=== PATIENT | female | born 1995 | race American Indian/Alaskan Native ===

== ENCOUNTER 2020-01-12 08:10 | Inpatient (IN) | payer OTHER ==
[~2020-01-12] VITALS: Ht 160 cm; Wt 69.4 kg
[2020-01-12] MEDS ORDERED: PRENATAL TABLE1 EAC1 PO (08:18)
[2020-01-12] MEDS ORDERED: DHA100 MG (08:19)
== END 2020-01-15 10:31 | DRG 832 ==
LOC: OBS/DEL 08:10 → LDR 08:13 → OB/GYN 08:13 → OBS/DEL 08:13 → OB/GYN 22:00 → LDR 22:14 → OB/GYN 01-13 08:48
PROVIDERS: ADMIT Specialist; ATTEND Specialist
PROC: BY4CZZZ Ultrasonography of Second Trimester, Single Fetus (ICD-10-PCS; principal; 2020-01-12)
PROC: BT43ZZZ Ultrasonography of Bilateral Kidneys (ICD-10-PCS; 2020-01-12)
PROC: 4A0HXFZ Measurement of Products of Conception, Cardiac Rhythm, External Approach (ICD-10-PCS; 2020-01-12)
DX: O23.02 Infections of kidney in pregnancy, second trimester (principal); N13.30 Unspecified hydronephrosis; O99.891 Other specified diseases and conditions complicating pregnancy; Z3A.26 26 weeks gestation of pregnancy; Z20.828 Contact with and (suspected) exposure to other viral communicable diseases

== ENCOUNTER 2020-04-07 12:00 | Inpatient (IN) | payer OTHER ==
[~2020-04-07] VITALS: Ht 165.1 cm; Wt 76.7 kg
[~2020-04-07 12:00] MED LIST: DHA100 MG; PRENATAL TABLE1 EAC1 PO
== END 2020-04-18 11:15 | disposition home or self-care (01) | DRG 806 ==
LOC: LDR 04-16 06:05 → SURG-SUITE 04-16 14:52 → LDR 04-21 12:00
PROVIDERS: ADMIT Specialist; ATTEND Specialist
PROC: 10E0XZZ Delivery of Products of Conception, External Approach (ICD-10-PCS; principal; 2020-04-16)
PROC: 0W8NXZZ Division of Female Perineum, External Approach (ICD-10-PCS; 2020-04-16)
PROC: 3E033VJ Introduction of Other Hormone into Peripheral Vein, Percutaneous Approach (ICD-10-PCS; 2020-04-16)
PROC: 4A1HXFZ Monitoring of Products of Conception, Cardiac Rhythm, External Approach (ICD-10-PCS; 2020-04-16)
DX: O99.892 Other specified diseases and conditions complicating childbirth (principal); N13.30 Unspecified hydronephrosis; Z37.0 Single live birth; Z3A.39 39 weeks gestation of pregnancy; Z20.822 Contact with and (suspected) exposure to COVID-19

== ENCOUNTER 2021-08-21 11:17 | Emergency (ER) | payer OTHER ==
[~2021-08-21] VITALS: Ht 165.1 cm; Wt 67.1 kg
== END 2021-08-21 16:10 | disposition home or self-care (01) ==
LOC: ER 11:17
DX: O34.60 Maternal care for abnormality of vagina, unspecified trimester (principal); R10.2 Pelvic and perineal pain

== ENCOUNTER 2022-07-25 18:34 | Outpatient (CLI) | payer OTHER ==
[2022-07-25] MEDS ORDERED: PRENATAL TABLE1 EAC1 PO (18:59)
== END 2022-07-26 16:39 | disposition home or self-care (01) ==
LOC: OBS/DEL 18:34
PROVIDERS: ATTEND Specialist
DX: O09.42 Supervision of pregnancy with grand multiparity, second trimester (principal); N20.0 Calculus of kidney; Z3A.25 25 weeks gestation of pregnancy

== ENCOUNTER 2022-10-24 13:00 | Inpatient (IN) | payer OTHER ==
[~2022-10-24] VITALS: Ht 165.1 cm; Wt 79.4 kg
== END 2022-11-02 13:16 | disposition home or self-care (01) | DRG 807 ==
LOC: LDR 10-31 05:36 → OB/GYN 10-31 13:45 → LDR 11-06 13:00
PROVIDERS: ADMIT Specialist; ATTEND Specialist
PROC: 10E0XZZ Delivery of Products of Conception, External Approach (ICD-10-PCS; principal; 2022-10-31)
PROC: 0HQ9XZZ Repair Perineum Skin, External Approach (ICD-10-PCS; 2022-10-31)
PROC: 4A1HXCZ Monitoring of Products of Conception, Cardiac Rate, External Approach (ICD-10-PCS; 2022-10-31)
DX: O70.0 First degree perineal laceration during delivery (principal); Z37.0 Single live birth; Z3A.39 39 weeks gestation of pregnancy; Z20.822 Contact with and (suspected) exposure to COVID-19

== ENCOUNTER 2023-11-30 11:27 | Outpatient (CLI) | payer OTHER | END 2023-11-30 11:28 | disposition home or self-care (01) | LOC: PRENATAL 11:27 | PROVIDERS: ATTEND Obstetrics & Gynecology Maternal & Fetal Medicine | DX: O36.80X0 Pregnancy with inconclusive fetal viability, not applicable or unspecified (principal); Z36.82 Encounter for antenatal screening for nuchal translucency; O30.90 Multiple gestation, unspecified, unspecified trimester; Z3A.12 12 weeks gestation of pregnancy ==

== ENCOUNTER 2023-12-14 12:30 | Emergency (ER) | payer OTHER ==
[~2023-12-14] VITALS: Ht 165.1 cm; Wt 70.8 kg
[2023-12-14] MEDS ORDERED: MEPERIDINE HCL/PF 50 MG/ML VIAL IV ONE (14:00)
[2023-12-14] MEDS ORDERED: FAMOtidine 10 MG/ML (4ML VIAL) IV ONE (14:00)
[2023-12-14] MEDS ORDERED: 0.9 % SODIUM CHLORIDE 1,000 ML IV ONE (14:00)
[2023-12-14 14:33] LABS: HEMATOCRIT 39.4 % (36.0-45.00); HEMOGLOBIN 13.5 g/dL (12.0-15.00); MEAN CELL VOLUME 91.1 fL (80.00-100.00); MEAN CORPUSCULAR HEMOGLOBIN 31.1 pg (27.00-32.0); MEAN CORPUSCULAR HGB CONC 34.1 g/dl (32.0-36.0); PH,URINE 6.5 (5.0-8.0); PLATELET COUNT 220 K/uL (150-450); RED BLOOD COUNT 4.33 M/uL (4.00-6.00); RED CELL DISTRIBUTION WIDTH 12.8 % (11.5-14.5); URINE APPEARANCE Turbid; URINE BILIRRUBIN Small (NEGATIVE); URINE BLOOD Large; URINE COLOR Red; URINE GLUCOSE Negative (NEGATIVE); URINE KETONE Negative (NEGATIVE); URINE LEUKOCYTE Moderate; URINE NITRATE Positive
[2023-12-14 14:37] LABS: URINE BACTERIA 2633.3 uL (0.0-1933); URINE EPITHELIAL CELLS 58.9 uL (0.0-38.8); URINE WBC 236.8 uL (0.0-23.2)
[2023-12-14 14:58] LABS: URINE CAST 0.72 uL (0.0-1.40); URINE PROTEIN 100 (NEGATIVE); URINE RBC > 10558.9 uL (0.0-20.8)
[2023-12-14 15:07] LABS: INR 0.96; PARTIAL THROMBOPLASTIN TIME 31.5 SECONDS (22.0-34.0); PROTHROMBIN TIME 10.5 SECONDS (9.0-11.5)
[2023-12-14 15:09] LABS: ALBUMIN 3.4 gm/dL (3.4-5.0); BILIRUBIN TOTAL 0.43 mg/dL (0.3-1.2); CREATININE SERUM 0.55 mg/dL (0.55-1.02); GFR 132.59; GLOBULINA 3.9 G/DL (2.4-3.5); POTASSIUM 3.47 mEq/L (3.5-5.1); TOTAL PROTEIN 7.3 gm/dL (6.4-8.2)
[2023-12-14] MEDS ORDERED: MORPHINE SULFATE 4 MG/ML VIAL IV ONE (19:30)
[2023-12-14] MEDS ORDERED: KETOROLAC TROMETHAMINE 15 MG VIAL IV ONE (21:45)
== END 2023-12-15 00:27 | disposition home or self-care (01) ==
LOC: ER 12:32
PROVIDERS: General Practice
DX: O30.002 Twin pregnancy, unspecified number of placenta and unspecified number of amniotic sacs, second trimester (principal); O32.2XX1 Maternal care for transverse and oblique lie, fetus 1; O26.892 Other specified pregnancy related conditions, second trimester; R10.31 Right lower quadrant pain; N13.30 Unspecified hydronephrosis; N20.0 Calculus of kidney; Z3A.14 14 weeks gestation of pregnancy

== ENCOUNTER 2024-01-05 16:13 | Emergency (ER) | payer OTHER ==
[~2024-01-05] VITALS: Ht 165.1 cm; Wt 69.9 kg
[2024-01-05] MEDS ORDERED: TAMS0.4C PO (16:31)
[2024-01-05] MEDS ORDERED: MEPERIDINE HCL/PF 25 MG/ML VIAL IM ONE (17:15)
[2024-01-05] MEDS ORDERED: 0.9 % SODIUM CHLORIDE 500 ML IV SCH (17:15)
[2024-01-05 17:33] LABS: HEMATOCRIT 33.7 % (36.0-45.00); HEMOGLOBIN 11.5 g/dL (12.0-15.00); MEAN CELL VOLUME 91.2 fL (80.00-100.00); MEAN CORPUSCULAR HEMOGLOBIN 31.1 pg (27.00-32.0); MEAN CORPUSCULAR HGB CONC 34.1 g/dl (32.0-36.0); PLATELET COUNT 182 K/uL (150-450); RED BLOOD COUNT 3.69 M/uL (4.00-6.00); RED CELL DISTRIBUTION WIDTH 13.4 % (11.5-14.5)
[2024-01-05 18:25] LABS: CALCIUM 8.8 mg/dL (8.5-10.1); CREATININE SERUM 1.06 mg/dL (0.55-1.02); GFR 62.18; POTASSIUM 3.49 mEq/L (3.5-5.1)
[2024-01-05 20:18] LABS: PH,URINE 7.5 (5.0-8.0); URINE APPEARANCE Clear; URINE BILIRRUBIN Negative (NEGATIVE); URINE BLOOD Small; URINE COLOR Yellow; URINE GLUCOSE Negative (NEGATIVE); URINE LEUKOCYTE Moderate; URINE NITRATE Negative; URINE PROTEIN Negative (NEGATIVE); URINE UROBILINOGEN 0.2 E.U./dl
[2024-01-05 20:21] LABS: URINE BACTERIA 652.6 uL (0.0-1933); URINE EPITHELIAL CELLS 36.4 uL (0.0-38.8); URINE RBC 123.6 uL (0.0-20.8); URINE WBC 79.9 uL (0.0-23.2)
[2024-01-05 20:28] LABS: URINE KETONE >=160 (NEGATIVE)
[2024-01-05] MEDS ORDERED: MEPERIDINE HCL 25 MG/ML AMPUL IV ONE (21:15)
== END 2024-01-06 | disposition home or self-care (01) ==
LOC: ER 16:14
PROVIDERS: Emergency Medicine
DX: O99.891 Other specified diseases and conditions complicating pregnancy (principal); N13.30 Unspecified hydronephrosis; N20.0 Calculus of kidney; Z3A.17 17 weeks gestation of pregnancy

== ENCOUNTER 2024-02-01 09:37 | Outpatient (CLI) | payer OTHER ==
[~2024-02-01 09:37] MED LIST changes: +TAMS0.4C PO
== END 2024-02-01 09:40 | disposition home or self-care (01) ==
LOC: PRENATAL 09:37
PROVIDERS: ATTEND Obstetrics & Gynecology Maternal & Fetal Medicine
DX: O44.00 Complete placenta previa NOS or without hemorrhage, unspecified trimester (principal); O30.90 Multiple gestation, unspecified, unspecified trimester; Z3A.21 21 weeks gestation of pregnancy

== ENCOUNTER 2024-02-18 12:20 | Outpatient (CLI) | payer OTHER ==
[2024-02-18 11:00] VITALS: BP 112/73
[2024-02-18] MEDS ORDERED: KETOROLAC TROMETHAMINE 60 MG VIAL IM NR (12:45)
[2024-02-18] MEDS ORDERED: RINGERS SOLUTION,LACTATED 1,000 ML IV SCH (12:45)
[2024-02-18] MEDS ORDERED: PRENATABS RX T1 EACH PO (13:14)
[2024-02-18 13:34] LABS: URINE APPEARANCE Cloudy; URINE BILIRRUBIN Negative (NEGATIVE); URINE BLOOD Negative; URINE COLOR Yellow; URINE GLUCOSE Negative (NEGATIVE); URINE KETONE 15 (NEGATIVE); URINE LEUKOCYTE Moderate; URINE NITRATE Negative; URINE PROTEIN 30 (NEGATIVE)
[2024-02-18 13:35] LABS: HEMATOCRIT 31.8 % (36.0-45.00); HEMOGLOBIN 10.6 g/dL (12.0-15.00); MEAN CELL VOLUME 93.4 fL (80.00-100.00); MEAN CORPUSCULAR HEMOGLOBIN 31.1 pg (27.00-32.0); MEAN CORPUSCULAR HGB CONC 33.3 g/dl (32.0-36.0); PLATELET COUNT 203 K/uL (150-450); RED CELL DISTRIBUTION WIDTH 14.8 % (11.5-14.5)
[2024-02-18 13:38] LABS: URINE RBC 6.3 uL (0.0-20.8); URINE WBC 283.8 uL (0.0-23.2)
[2024-02-18 13:53] LABS: URINE BACTERIA > 9821.5 uL (0.0-1933); URINE CAST 0.14 uL (0.0-1.40); URINE EPITHELIAL CELLS > 201.7 uL (0.0-38.8)
[2024-02-18 16:01] VITALS: BP 99/60
[2024-02-18] MEDS ORDERED: ACETAMINOPHEN 500 MG GEL..CAP PO PRN (17:15)
[2024-02-18 19:29] VITALS: BP 113/70
[2024-02-18] MEDS ORDERED: KETOROLAC TROMETHAMINE 60 MG VIAL IM ONE (23:00)
[2024-02-18 23:33] VITALS: BP 103/53
[2024-02-19 04:14] VITALS: BP 96/56
[2024-02-19 06:29] VITALS: BP 100/62; O2SAT 100
[2024-02-19 09:20] VITALS: BP 100/62
== END 2024-02-19 09:47 | disposition home or self-care (01) ==
LOC: OBS/DEL 12:20
PROVIDERS: ATTEND Specialist
DX: O47.02 False labor before 37 completed weeks of gestation, second trimester (principal); O26.849 Uterine size-date discrepancy, unspecified trimester; O36.8199 Decreased fetal movements, unspecified trimester, other fetus; O30.90 Multiple gestation, unspecified, unspecified trimester; Z3A.23 23 weeks gestation of pregnancy

== ENCOUNTER 2024-02-27 11:00 | Emergency (ER) | payer OTHER ==
[~2024-02-27] VITALS: Ht 165.1 cm; Wt 71.7 kg
[~2024-02-27 11:00] MED LIST changes: +PRENATABS RX T1 EACH PO
[2024-02-27 12:28] VITALS: BP 120/72; O2SAT 98
[2024-02-27] MEDS ORDERED: MEPERIDINE HCL/PF 50 MG/ML VIAL IV STA (13:08)
[2024-02-27] MEDS ORDERED: FAMOTIDINE/PF 20 MG/2 ML VIAL IV STA (13:19)
[2024-02-27] MEDS ORDERED: ONDANSETRON HCL 2 MG/ML VIAL IV STA (13:20)
[2024-02-27 14:00] LABS: HEMATOCRIT 30.7 % (36.0-45.00); HEMOGLOBIN 10.1 g/dL (12.0-15.00); MEAN CELL VOLUME 93.7 fL (80.00-100.00); MEAN CORPUSCULAR HEMOGLOBIN 30.8 pg (27.00-32.0); MEAN CORPUSCULAR HGB CONC 32.9 g/dl (32.0-36.0); PLATELET COUNT 310 K/uL (150-450); RED BLOOD COUNT 3.27 M/uL (4.00-6.00); RED CELL DISTRIBUTION WIDTH 14.6 % (11.5-14.5)
[2024-02-27] MEDS ORDERED: CEFTRIAXONE SODIUM 1,000 MG VIAL IV STA (14:00)
[2024-02-27 14:43] LABS: ALBUMIN 2.4 gm/dL (3.4-5.0); BILIRUBIN TOTAL 0.35 mg/dL (0.3-1.2); CALCIUM 8.9 mg/dL (8.5-10.1); CREATININE SERUM 0.93 mg/dL (0.55-1.02); GFR 72.32; GLOBULINA 4.8 G/DL (2.4-3.5); POTASSIUM 3.64 mEq/L (3.5-5.1); TOTAL PROTEIN 7.2 gm/dL (6.4-8.2)
[2024-02-27] MEDS ORDERED: KETOROLAC TROMETHAMINE 60 MG VIAL IM ONE (17:45)
[2024-02-27] MEDS ORDERED: ACETAMINOPHEN 325 MG TABLET PO STA (19:32)
== END 2024-02-27 19:50 | disposition home or self-care (01) ==
LOC: ER 11:02
PROVIDERS: General Practice
DX: O99.891 Other specified diseases and conditions complicating pregnancy (principal); N13.30 Unspecified hydronephrosis; O30.002 Twin pregnancy, unspecified number of placenta and unspecified number of amniotic sacs, second trimester; Z3A.25 25 weeks gestation of pregnancy

== ENCOUNTER 2024-03-20 07:58 | Outpatient (CLI) | payer OTHER | END 2024-03-20 07:59 | disposition home or self-care (01) | LOC: PRENATAL 07:58 | PROVIDERS: ATTEND Obstetrics & Gynecology Maternal & Fetal Medicine | DX: O26.849 Uterine size-date discrepancy, unspecified trimester (principal); O36.8199 Decreased fetal movements, unspecified trimester, other fetus; O30.90 Multiple gestation, unspecified, unspecified trimester; Z3A.28 28 weeks gestation of pregnancy ==

== ENCOUNTER → 2024-04-08 09:44 | Outpatient (CLI) | payer OTHER | END | disposition home or self-care (01) | LOC: PRENATAL 09:44 | PROVIDERS: ATTEND Obstetrics & Gynecology Maternal & Fetal Medicine | DX: O26.849 Uterine size-date discrepancy, unspecified trimester (principal); O36.8199 Decreased fetal movements, unspecified trimester, other fetus; O30.90 Multiple gestation, unspecified, unspecified trimester; O36.5990 Maternal care for other known or suspected poor fetal growth, unspecified trimester, not applicable or unspecified; O99.019 Anemia complicating pregnancy, unspecified trimester; Z3A.31 31 weeks gestation of pregnancy ==

== ENCOUNTER 2024-04-29 10:53 | Outpatient (CLI) | payer OTHER | END 2024-04-29 10:54 | disposition home or self-care (01) | LOC: PRENATAL 10:53 | PROVIDERS: ATTEND Obstetrics & Gynecology Maternal & Fetal Medicine | DX: O26.849 Uterine size-date discrepancy, unspecified trimester (principal); O36.8199 Decreased fetal movements, unspecified trimester, other fetus; O30.90 Multiple gestation, unspecified, unspecified trimester; O36.5990 Maternal care for other known or suspected poor fetal growth, unspecified trimester, not applicable or unspecified; Z3A.39 39 weeks gestation of pregnancy ==

== ENCOUNTER 2024-05-13 08:18 | Outpatient (CLI) | payer OTHER | END 2024-05-13 08:19 | disposition home or self-care (01) | LOC: PRENATAL 08:18 | PROVIDERS: ATTEND Obstetrics & Gynecology Maternal & Fetal Medicine | DX: O26.849 Uterine size-date discrepancy, unspecified trimester (principal); O36.8199 Decreased fetal movements, unspecified trimester, other fetus; O30.90 Multiple gestation, unspecified, unspecified trimester; O36.5990 Maternal care for other known or suspected poor fetal growth, unspecified trimester, not applicable or unspecified; Z3A.36 36 weeks gestation of pregnancy ==

== ENCOUNTER 2024-05-20 12:13 | Inpatient (IN) | payer OTHER ==
[~2024-05-20] VITALS: Ht 165.1 cm; Wt 2.3 kg
[~2024-05-20 12:13] MED LIST changes: +IRON325 MG
[2024-05-20 12:16] LABS: URINE APPEARANCE Cloudy; URINE BILIRRUBIN Negative (NEGATIVE); URINE BLOOD Negative; URINE COLOR Yellow; URINE GLUCOSE Negative (NEGATIVE); URINE KETONE Negative (NEGATIVE); URINE LEUKOCYTE Large; URINE NITRATE Negative; URINE PROTEIN Negative (NEGATIVE); URINE UROBILINOGEN 0.2 E.U./dl
[2024-05-20 12:20] LABS: URINE BACTERIA 3908.1 uL (0.0-1933); URINE EPITHELIAL CELLS 114.7 uL (0.0-38.8); URINE RBC 2.9 uL (0.0-20.8); URINE WBC 72.5 uL (0.0-23.2)
[2024-05-20 12:23] LABS: HEMATOCRIT 32.6 % (36.0-45.00); HEMOGLOBIN 10.3 g/dL (12.0-15.00); MEAN CELL VOLUME 87.4 fL (80.00-100.00); MEAN CORPUSCULAR HEMOGLOBIN 27.6 pg (27.00-32.0); MEAN CORPUSCULAR HGB CONC 31.6 g/dl (32.0-36.0); PLATELET COUNT 227 K/uL (150-450); RED BLOOD COUNT 3.73 M/uL (4.00-6.00); RED CELL DISTRIBUTION WIDTH 16.9 % (11.5-14.5)
[2024-05-20 12:42] LABS: URINE CAST 0.14 uL (0.0-1.40)
[2024-05-20 12:53] LABS: ALBUMIN 2.7 gm/dL (3.4-5.0); BILIRUBIN TOTAL 0.35 mg/dL (0.3-1.2); CREATININE SERUM 0.51 mg/dL (0.55-1.02); GFR 143.59; GLOBULINA 3.7 G/DL (2.4-3.5); POTASSIUM 4.38 mEq/L (3.5-5.1); TOTAL PROTEIN 6.4 gm/dL (6.4-8.2)
[2024-05-20 13:09] LABS: INR < 0.93; PARTIAL THROMBOPLASTIN TIME 28.2 SECONDS (22.0-34.0); PROTHROMBIN TIME 10.2 SECONDS (9.0-11.5)
[2024-05-23 06:20] VITALS: BP 109/75
[2024-05-23] MEDS ORDERED: CEFAZOLIN SODIUM 1,000 MG VIAL IV ONE (11:00)
[2024-05-23] MEDS ORDERED: ERYTHROMYCIN BASE OPHT 1GM EACH TUBE OP ONE (11:00)
[2024-05-23] MEDS ORDERED: OXYTOCIN 20 UNITS/1000ML RL PIGGYBAG IV ONE (11:00)
[2024-05-23] MEDS ORDERED: PROMETHAZINE HCL 50 MG/ML AMPUL IM PRN (12:15)
[2024-05-23] MEDS ORDERED: MEPERIDINE HCL/PF 50 MG/ML VIAL IM PRN (12:15)
[2024-05-23] MEDS ORDERED: RINGERS SOLUTION,LACTATED 1,000 ML IV SCH (12:15)
[2024-05-23] MEDS ORDERED: MORPHINE SULFATE 4 MG/ML VIAL IV ONE (12:20)
[2024-05-23] MEDS ORDERED: CEFAZOLIN SODIUM 1,000 MG VIAL IV SCH (14:00)
[2024-05-23 17:48] VITALS: BP 117/71
[2024-05-23] MEDS ORDERED: MORPHINE SULFATE 4 MG/ML VIAL IV PRN (20:30)
[2024-05-24] VITALS: BP 111/68
[2024-05-24 02:15] LABS: HEMATOCRIT 26.7 % (36.0-45.00); MEAN CELL VOLUME 86.4 fL (80.00-100.00); PLATELET COUNT 183 K/uL (150-450); RED BLOOD COUNT 3.08 M/uL (4.00-6.00); RED CELL DISTRIBUTION WIDTH 17.4 % (11.5-14.5)
[2024-05-24 02:16] LABS: HEMOGLOBIN 8.5 g/dL (12.0-15.00); MEAN CORPUSCULAR HEMOGLOBIN 27.5 pg (27.00-32.0)
[2024-05-24 08:03] VITALS: BP 113/71
[2024-05-24] MEDS ORDERED: OxyCODONE HCL 5 MG TABLET (ROXICODONE) PO PRN (09:45)
[2024-05-24] MEDS ORDERED: FERROUS SULFATE 325 MG TABLET.EC PO SCH (13:55)
[2024-05-24] MEDS ORDERED: PNV,CALCIUM 72/IRON/FOLIC ACID 1 TAB TABLET PO SCH (13:55)
[2024-05-24] MEDS ORDERED: ACETAMINOPHEN 500 MG GEL..CAP PO PRN (14:30)
[2024-05-24 16:00] VITALS: BP 116/74
[2024-05-25] VITALS: BP 131/80
[2024-05-25 09:00] VITALS: BP 113/73
[2024-05-25 15:27] VITALS: BP 130/73
[2024-05-26 00:28] VITALS: BP 107/67
[2024-05-26] MEDS ORDERED: IBUPROFEN800 MG PO (07:31)
[2024-05-26 09:20] VITALS: BP 118/75
== END 2024-05-26 11:34 | disposition home or self-care (01) | DRG 785 ==
LOC: O/R 05-23 05:20 → OB/GYN 05-23 05:20
PROVIDERS: ADMIT Specialist; ATTEND Specialist
PROC: 0UB70ZZ Excision of Bilateral Fallopian Tubes, Open Approach (ICD-10-PCS; 2024-05-23)
PROC: 4A1HXCZ Monitoring of Products of Conception, Cardiac Rate, External Approach (ICD-10-PCS; 2024-05-23)
PROC: 10D00Z1 Extraction of Products of Conception, Low, Open Approach (ICD-10-PCS; principal; 2024-05-23 07:00)
DX: O60.14X2 Preterm labor third trimester with preterm delivery third trimester, fetus 2 (principal); O30.043 Twin pregnancy, dichorionic/diamniotic, third trimester; Z3A.36 36 weeks gestation of pregnancy; Z37.2 Twins, both liveborn; Z30.2 Encounter for sterilization